=== PATIENT | male | born 1960 | race Caucasian/White ===

== ENCOUNTER 2021-05-07 14:42 | Emergency (ER) | payer OTHER, SELFPAY ==
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
[2021-05-07 14:56] VITALS: BP 138/78; PULSE 81; RESP 16; TEMP 36.9; O2SAT 100
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
== END 2021-05-07 15:50 | disposition home or self-care (01) ==
PROVIDERS: Emergency Provider Nurse Practitioner Family
DX: S62.616A Displaced fracture of proximal phalanx of right little finger, initial encounter for closed fracture (principal); V28.4XXA Motorcycle driver injured in noncollision transport accident in traffic accident, initial encounter
CPT/HCPCS: 29125; 73140; 99214; A4565; G0463